=== PATIENT | female | born 1965 | race Caucasian/White ===

== ENCOUNTER 2016-11-20 16:14 | Emergency (ER) | payer OTHER ==
[~2016-11-20] VITALS: Ht 172.7 cm; Wt 54.5 kg
[~2016-11-20 16:14] MED LIST: Z.0.NO CURRENT MEDS
[2016-11-20 16:31] VITALS: BP 139/77; PULSE 105; RESP 16; TEMP 98.2; O2SAT 96
[2016-11-20] MEDS ORDERED: LORazepam 1 MG TAB PO ONE (16:45)
[2016-11-20 17:56] LABS: AUTOMATED NEUTROPHIL # 7.1 TH/MM3 (1.8-7.7); BASOPHIL # 0.1 TH/MM3 (0-0.2); BASOPHIL % 0.7 % (0.0-2.0); EOSINOPHIL # 0.1 TH/MM3 (0-0.4); EOSINOPHIL % 0.9 % (0.0-4.0); HEMATOCRIT 39.7 % (35.0-46.0); LYMPH % 42.7 % (9.0-44.0); LYMPHOCYTE # 6.2 TH/MM3 (1.0-4.8); MEAN CELL VOLUME 89.8 FL (80.0-100.0); MEAN CORPUSCULAR HEMOGLOBIN 31.8 PG (27.0-34.0); MEAN CORPUSCULAR HGB CONC 35.4 % (32.0-36.0); NEUT % 48.7 % (16.0-70.0); PLATELET COUNT 299 TH/MM3 (150-450); RED BLOOD COUNT 4.42 MIL/MM3 (4.00-5.30); RED CELL DISTRIBUTION WIDTH 14.1 % (11.6-17.2); WHITE BLOOD COUNT 14.6 TH/MM3 (4.0-11.0)
[2016-11-20 17:57] LABS: AMPHETAMINE, URINE NEG (NEG); BARBITURATES, URINE NEG (NEG); COCAINE, URINE NEG (NEG)
[2016-11-20 18:01] LABS: HEMO FLAGS AUTO DIFF
[2016-11-20 18:11] LABS: ANION GAP 14 MEQ/L (5-15)
[2016-11-20 18:16] LABS: ALKALINE PHOSPHATASE 97 U/L (45-117); ALT (GPT) 58 U/L (10-53); AST (GOT) 66 U/L (15-37); BICARBONATE 26.5 MEQ/L (21.0-32.0); BLOOD UREA NITROGEN 8 MG/DL (7-18); CHLORIDE 99 MEQ/L (98-107); GLOMERULAR FILTRATION RATE 82 ML/MIN (>89); POTASSIUM 3.6 MEQ/L (3.5-5.1); SODIUM (NA) 139 MEQ/L (136-145); TOTAL BILIRUBIN ADULT 0.5 MG/DL (0.2-1.0)
[2016-11-20] MEDS ORDERED: ONDANSETRON HCL 4 MG/2 ML VIAL IV PUSH PRN (18:30)
[2016-11-20] MEDS ORDERED: FLUMAZENIL 0.5 MG/5 ML VIAL IV PUSH PRN (18:30)
[2016-11-20] MEDS ORDERED: LORazepam 1 MG TAB PO PRN (18:30)
[2016-11-20] MEDS ORDERED: ACETAMINOPHEN 325 MG TAB PO PRN (18:30)
[2016-11-20] MEDS ORDERED: LORazepam 2 MG/ML VIAL IV PUSH PRN ×4 (18:30)
[2016-11-20] MEDS ORDERED: LORazepam 2 MG TAB PO PRN (18:30)
[2016-11-20 18:34] LABS: BANDS 1 % (0-6); BASOPHILS 1 % (0-2); NEUTROPHIL # MANUAL DIFF 6.3 TH/MM3 (1.8-7.7); POLYS (SEG NEUTROPHILS) 42 % (16-70); WBC DIFF SAMPLE 100
[2016-11-20 18:35] LABS: PLATELET ESTIMATE SMEAR NORMAL (NORMAL); PLATELET MORPHOLOGY NORMAL (NORMAL); SCAN/DIFF FINAL DIFF MANUAL; TARGET CELLS 1+ (NORMAL); TEARDROP RBCS 1+ (NORMAL)
--- NOTE | 2016-11-20 18:35 | PD ---
HPI Chief Complaint: Psychiatric Symptoms Time Seen by Provider: 18:31 Travel History International Travel<30 days: No Contact w/Intl Traveler<30days: No Traveled to known affect area: No History of Present Illness HPI 51-year-old female that presents to the ED for evaluation of psych. Patient was Munoz acted by police after apparent she contacted the police stating that she wanted to kill herself. Per patient she tells me that she is "sick". Per patient she is very anxious and depressed. Neurovascular was she means by been sick she cannot really tell me other than being very anxious. She denies any chest or shortness of breath. No abdominal pain. She does tell me that she does drink a lot and she had half a pint of vodka. Denies any other complaints. Denies any homicidal ideation. Per patient she takes nothing for anxiety or depression. She's never been here before. She denies any cuts. She denies any plan. Per patient she just feels overwhelmed secondary to multiple stresses and wants to end it all. History is somewhat difficult because she does appear to be very intoxicated. She smells of alcohol. [facility] Past Medical History Anxiety: Yes ?: Unknown Social History Alcohol Use: Yes (beer,vodka denies currently states hx of) Tobacco Use: Yes (1/2 PPD) Substance Use: No Allergies-Medications (Allergen,Severity, Reaction): Coded Allergies: No Known Allergies (Unverified , 11/20/16) Reported Meds & Prescriptions Reported Meds & Active Scripts Active No Active Prescriptions or Reported Medications Review of Systems ROS Limitations: Intoxication General / Constitutional: No: Fever, Chills, Weight Gain, Weight Loss, Other Eyes: No: Diploplia, Blurred Vision, Photophobia, Drainage, Redness, Foreign Body Sensation, Pain, Tearing, Blind Spots, Visual changes, Blindness, Other HENT: No: Headaches, Vertigo, Lightheadedness, Sore Throat, Rhinitis, Rhinorrhea, Congestion, Nosebleed, Neck Stiffness, Neck Pain, Masses, Gingival Bleeding, Dental Difficulties, Ear Discharge, Earache, Other Cardiovascular: No: Chest Pain or Discomfort, Palpitations, Irregular Rhythm, Tachycardia, Diaphoresis, Syncope, Dyspnea on exertion, Varicosities, Edema, Cyanosis, Varicosities, Phlebitis, Claudication, Other Respiratory: No: Cough, Shortness of Breath, Wheezing, Sneezing, Orthopnea, Hemoptysis, Stridor, Night Sweats, Pleuritic Pain, Other Gastrointestinal: No: Nausea, Vomiting, Diarrhea, Abdominal Pain, Hematemesis, Hematochezia, Constipation, Changes in Bowel Habits, Indigestion, Dysphagia, Loss of Appetite, Other Genitourinary: No: Urgency, Frequency, Dysuria, Nocturia, Hematuria, Decreased Urinary Output, Oliguria, Hesitancy, Dribbling, Incontinence, Pelvic Pain, Flank Pain, Dyspareunia, Discharge, Dysmenorrhea, Menorrhagia, Metorrhagia, Vaginal Bleeding, Other Musculoskeletal: No: Myalgias, Arthralgias, Limited ROM, Weakness, Cramping, Edema, Pain, Atrophy, Other Skin: No Rash, No Itching, No Dryness, No Lumps, No Hives, No Change in Pigmentation, No Change in nails, No Alopecia, No Lesions, No Breast Lumps, No Breast Tenderness, No Breast Swelling, No Other Neurologic: No: Weakness, Dizziness, Syncope, Focal Abnormalities, Coordination Problem, Tremor, Ataxia, Headache, Change in Mentation, Slurred Speech, Paresthesia, Incontinence, Seizures, Sensory Disturbance, Other Psychiatric: Positive: Anxiety, Depression, Suicidal Ideations, Substance Abuse , No: Disorder of Thought, Mood Disorder, Homicidal Ideation, Other Endocrine: No: Heat Intolerance, Cold Intolerance, Polyuria, Polydipsia, Other Hematologic/Lymphatic: No: Easy Bruising, Lymph Node Enlargement, Other Physical Exam Exam Limitations: Intoxication Narrative GENERAL: SKIN: Warm and dry. HEAD: Atraumatic. Normocephalic. EYES: Pupils equal and round. No scleral icterus. No injection or drainage. ENT: No nasal bleeding or discharge. Mucous membranes pink and moist. Tongue is midline. No uvula deviation. NECK: Trachea midline. No JVD. CARDIOVASCULAR: Regular rate and rhythm. No murmurs, S3, S4. RESPIRATORY: No accessory muscle use. Clear to auscultation. Breath sounds equal bilaterally. GASTROINTESTINAL: Abdomen soft, non-tender, nondistended. Hepatic and splenic margins not palpable. MUSCULOSKELETAL: Extremities without clubbing, cyanosis, or edema. No obvious deformities. Full range of motion of the upper and lower extremities bilaterally. 2+ pulses bilaterally. NEUROLOGICAL: Awake and alert. No obvious cranial nerve deficits. Motor grossly within normal limits. Five out of 5 muscle strength in the arms and legs. Normal speech. PSYCHIATRIC: Anxious and intoxicated mood and affect; insight and judgment normal. Data Data Last Documented VS Vital Signs Date Time Temp Pulse Resp B/P Pulse Ox O2 Delivery O2 Flow Rate FiO2 11/20/16 16:31 98.2 105 16 139/77 96 Orders Complete Blood Count With Diff (11/20/16 16:23) Comprehensive Metabolic Panel (11/20/16 16:23) Psych Screen (11/20/16 16:23) Drug Screen, Random Urine (11/20/16 16:23) Alcohol (Ethanol) (11/20/16 16:23) Lorazepam (Ativan) (11/20/16 16:45) Alcohol Withdrawal Asmt-Ciwa ONCE (11/20/16 18:30) Ondansetron Inj (Zofran Inj) (11/20/16 18:30) Acetaminophen (Tylenol) (11/20/16 18:30) Flumazenil Inj (Romazicon Inj) (11/20/16 18:30) Lorazepam (Ativan) (11/20/16 18:30) Lorazepam Inj (Ativan Inj) (11/20/16 18:30) Lorazepam (Ativan) (11/20/16 18:30) Lorazepam Inj (Ativan Inj) (11/20/16 18:30) Lorazepam Inj (Ativan Inj) (11/20/16 18:30) Lorazepam Inj (Ativan Inj) (11/20/16 18:30) Labs Laboratory Tests Test 11/20/16 17:00 White Blood Count 14.6 TH/MM3 Red Blood Count 4.42 MIL/MM3 Hemoglobin 14.1 GM/DL Hematocrit 39.7 % Mean Corpuscular Volume 89.8 FL Mean Corpuscular Hemoglobin 31.8 PG Mean Corpuscular Hemoglobin 35.4 % Concent Red Cell Distribution Width 14.1 % Platelet Count 299 TH/MM3 Mean Platelet Volume 8.0 FL Neutrophils (%) (Auto) 48.7 % Lymphocytes (%) (Auto) 42.7 % Monocytes (%) (Auto) 7.0 % Eosinophils (%) (Auto) 0.9 % Basophils (%) (Auto) 0.7 % Neutrophils # (Auto) 7.1 TH/MM3 Lymphocytes # (Auto) 6.2 TH/MM3 Monocytes # (Auto) 1.0 TH/MM3 Eosinophils # (Auto) 0.1 TH/MM3 Basophils # (Auto) 0.1 TH/MM3 CBC Comment AUTO DIFF Sodium Level 139 MEQ/L Potassium Level 3.6 MEQ/L Chloride Level 99 MEQ/L Carbon Dioxide Level 26.5 MEQ/L Anion Gap 14 MEQ/L Blood Urea Nitrogen 8 MG/DL Creatinine 0.74 MG/DL Estimat Glomerular Filtration 82 ML/MIN Rate Random Glucose 88 MG/DL Calcium Level 8.9 MG/DL Total Bilirubin 0.5 MG/DL Aspartate Amino Transf 66 U/L (AST/SGOT) Alanine Aminotransferase 58 U/L (ALT/SGPT) Alkaline Phosphatase 97 U/L Total Protein 8.6 GM/DL Albumin 4.1 GM/DL Urine Opiates Screen NEG Urine Barbiturates Screen NEG Urine Amphetamines Screen NEG Urine Benzodiazepines Screen NEG Urine Cocaine Screen NEG Urine Cannabinoids Screen NEG Ethyl Alcohol Level 318 MG/DL MDM Medical Decision Making Medical Screen Exam Complete: Yes Emergency Medical Condition: Yes Medical Record Reviewed: Yes Interpretation(s) CBC & BMP Diagram 11/20/16 17:00 LFTs slightly elevated. Alcohol in the 300s Tox screen negative otherwise Differential Diagnosis Depression versus suicidal ideation versus anxiety versus adjustment disorder versus mood disorder versus bipolar disorder versus schizophrenia versus paranoid disorder versus psychosis versus substance abuse versus alcohol abuse versus alcohol induced psychosis versus homicidality addition versus cutting versus personality disorder Narrative Course 51-year-old female that presents to the ED for evaluation of Munoz act. Patient was properly examined and was found to have signs and symptoms consistent with appears to be psychiatric illness and alcohol abuse. Patient is hard to assess secondary to her intoxication. She appears to be very anxious. She was given Ativan. Labs were drawn. Patient was medically cleared. Okay to be seen by psych. Mental health screening was discussed with the patient. Diagnosis Primary Impression: Suicidal ideation Additional Impression: Alcohol abuse Scripts No Active Prescriptions or Reported Meds Jimy Dill Nov 20, 2016 18:35
[2016-11-20 23:04] VITALS: BP 102/65; PULSE 100; RESP 18; TEMP 98.7; O2SAT 96
[2016-11-21 03:42] VITALS: BP 111/58; PULSE 94; RESP 19; O2SAT 99
[2016-11-21 06:51] VITALS: BP 115/61; PULSE 101; RESP 18; O2SAT 99
[2016-11-21 10:00] VITALS: BP 132/86; PULSE 100; RESP 18
--- NOTE | 2016-11-21 12:40 | MB ---
cc: MY CARTAGENA DATE OF CONSULTATION: 11/21/2016 REASON FOR CONSULTATION: HISTORY OF PRESENT ILLNESS: This is a 51-year-old white female who was admitted because she has been having problem drinking and did not want to live anymore, so she called -- and was Munoz Acted. This morning she claimed that she was sorry and wants to get some help, and she denied any suicidal or homicidal ideation, intension or plan, wants to go home. She denies any auditory or visual hallucinations. She has been feeling depressed and she is not sure how long her marriage is going to last, but she is willing to seek outpatient counseling. BACKGROUND HISTORY The patient was born in [facility]. She has six brothers and one sister who of cancer of the breast. She was not close to her parents. She denied any physical, verbal or sexual abuse growing up. She did finish high school. She has been for 23 years. She has two children, a boy and a girl. She started to drink when she was about 19 and has been in trouble with the law. She has been to rehab once. She denied any suicidal ideation or in the past history of suicide, or inpatient psychiatric hospitalization. FAMILY HISTORY: Positive for alcoholism. MENTAL STATUS EXAMINATION: The patient is a 51 year-old white female who looks about the same as her stated age, was alert, oriented x3, cooperative, casually dressed. Her speech was slow without any evidence of looseness of associations, flight of ideas or pressured speech. Her mood was described as feeling sorry and wants some help as an outpatient. Denied any suicidal ideation, intentions or plan. Denied any auditory or visual hallucinations. There was no evidence of any formed paranoid delusion. She seems to be of low average intelligence with poor recent memory. Her insight is fair and her judgment seems to be okay on hypothetical situation. IMPRESSION Alcohol induced mood disorder. RECOMMENDATIONS At the present time the patient denies any suicidal and/or homicidal ideation, intentions or plans. Denies any auditory or visual hallucinations. Her thoughts are organized, willing to follow up as an outpatient and abstain from any alcohol use and/or abuse. No behavior or management problem exhibited here. In my opinion she does not meet the Munoz Act criteria. I will lift the Munoz Act and discharge her to be followed up as an outpatient. My BURDEN /10:36 AM /11:35 AM
== END 2016-11-21 15:22 | disposition home or self-care (01) ==
LOC: NEPE 16:14 → NEPJ 11-21 15:22
DX: R45.851 Suicidal ideations (principal); F10.129 Alcohol abuse with intoxication, unspecified; F10.94 Alcohol use, unspecified with alcohol-induced mood disorder; Y90.8 Blood alcohol level of 240 mg/100 ml or more; F17.210 Nicotine dependence, cigarettes, uncomplicated
CPT/HCPCS: 80053; 80307; 85007; 85027; 99285